=== PATIENT | female | born 1965 | race Caucasian/White ===

== ENCOUNTER 2019-02-18 05:04 | Emergency (ER) | payer OTHER ==
[2019-02-18] MEDS ORDERED: methylPREDNISolone Sodium Succinate 125 MG/2 ML SDV ONE (05:15)
[2019-02-18] MEDS ORDERED: Albuterol/Ipratropium 3.0-0.5 MG/3 ML Neb Soln ONE (05:15)
--- NOTE | 2019-02-18 05:15 | EDM.PDOC ---
ED HPI GENERAL MEDICAL PROBLEM - General Stated Complaint: SOB Time Seen by Provider: 02/18/19 05:10 Source of Information: Reports: Patient, RN Notes Reviewed History Limitations: Reports: Respiratory Distress - History of Present Illness INITIAL COMMENTS - FREE TEXT/NARRATIVE: 53-year-old female presents to emergency department today complaining of shortness of breath, she is a known history of asthma states she last used her inhaler 2 hours prior difficult to speak in more than 2 and 3 word sentences therefore review of systems and history of present illness is limited denies pain Pain Score (Numeric/FACES): 0 - Related Data Allergies Allergy/AdvReac Type Severity Reaction Status Date / Time Penicillins Allergy Severe Hives Verified 02/18/19 05:25 Home Meds: Home Meds Acetaminophen/HYDROcodone [HYDROcodone-Acetaminophen 5-500] 5 - 325 mg PO BID PRN 10/25/13 [History] Ibuprofen [Advil Liqui-Gels] 200 mg PO ASDIRECTED PRN 10/25/13 [History] Nitroglycerin 0.4 mg SL ASDIRECTED PRN 10/25/13 [History] traMADol [Ultram ER] 50 mg PO BID 10/25/13 [History] NIFEdipine [Procardia] 30 mg PO BEDTIME 12/30/13 [History] Methimazole [Tapazole] 10 mg PO DAILY 11/18/15 [History] Propranolol HCl 20 mg PO DAILY 11/18/15 [History] Rosuvastatin Calcium [Crestor] 10 mg PO DAILY 11/18/15 [History] predniSONE 20 mg PO DAILY #5 tab 02/18/19 [Rx] Past Medical History Cardiovascular History: Reports: High Cholesterol, [place] Respiratory History: Reports: Asthma Gastrointestinal History: Reports: Irritable Bowel Syndrome [employer] History: Reports: Endocrine/Metabolic History: Reports: Hypothyroidism - Past Surgical History Cardiovascular Surgical History: Reports: Carotid Stents GI Surgical History: Reports: Dominick Fundoplication Musculoskeletal Surgical History: Reports: Shoulder Surgery Social & Family History - Family History Cardiac: Reports: CAD, Hypertension, [place] - Tobacco Use Smoking Status *Q: Former Smoker ED ROS GENERAL - Review of Systems Review Of Systems: Unable To Obtain ED EXAM, GENERAL - Physical Exam Exam: See Below Exam Limited By: Respiratory Distress General Appearance: Alert, Moderate Distress Respiratory/Chest: Respiratory Distress, Decreased Breath Sounds, Wheezing Cardiovascular: No Murmur, Tachycardia Course - Vital Signs Last Recorded V/S: Last Vital Signs Temp 97.1 F 02/18/19 05:30 Pulse 95 02/18/19 05:30 Resp 24 H 02/18/19 05:30 BP 134/80 02/18/19 05:30 Pulse Ox 95 02/18/19 05:30 - Orders/Labs/Meds Orders: Active Orders 24 hr Category Date Time Status RT Aerosol Therapy [RC] ASDIRECTED Care 02/18/19 05:10 Active Meds: Medications Discontinued Medications Generic Name Dose Route Start Last Admin Trade Name Miguel Angel PRN Reason Stop Dose Admin Albuterol/Ipratropium 3 ml 02/18/19 05:10 02/18/19 05:19 Duoneb 3.0-0.5 Mg/3 Ml NEB 02/18/19 05:11 3 ml ONETIME ONE Administration Methylprednisolone Sodium Succinate 125 mg 02/18/19 05:10 02/18/19 05:19 Solu-Medrol IVPUSH 02/18/19 05:11 125 mg ONETIME ONE Administration - Re-Assessments/Exams Free Text/Narrative Re-Assessment/Exam: 02/18/19 05:28 Reexamination after the neb treatments reveals good air movement still has an expiratory wheeze Departure - Departure Time of Disposition: 06:04 Disposition: Home, Self-Care 01 Condition: Fair Clinical Impression: Asthma exacerbation Qualifiers: Asthma severity: moderate Asthma persistence: persistent Qualified Code(s): J45.41 - Moderate persistent asthma with (acute) exacerbation - Discharge Information Prescriptions: predniSONE 20 mg PO DAILY #5 tab Referrals: PCP,None [Primary Care Provider] - Additional Instructions: Start the steroids tomorrow please follow-up with your primary care provider in the next 3-5 days if no improvement, return to the emergency department with worsening of symptoms - My Orders Last 24 Hours: My Active Orders 02/18/19 05:10 RT Aerosol Therapy [RC] ASDIRECTED - Assessment/Plan Last 24 Hours: My Active Orders 02/18/19 05:10 RT Aerosol Therapy [RC] ASDIRECTED Plan: Assessment Asthma exacerbation Plan She had good improvement with the DuoNeb provided in the ED as well as 125 mg Solu-Medrol, discharged home prednisone 20 mg once day [facility]5 days if not better
[2019-02-18] MEDS: Albuterol/Ipratropium 3.0-0.5 MG/3 ML Neb Soln NEB ONE (05:19)
[2019-02-18] MEDS: methylPREDNISolone Sodium Succinate 125 MG/2 ML SDV IVPUSH ONE (05:19)
[2019-02-18 05:28] VITALS: BP 134/80
--- NOTE | 2019-02-18 05:59 | CRLCR ---
INDICATION: Shortness of breath TECHNIQUE: Chest 2 views. COMPARISON: None FINDINGS: Cardiovascular and mediastinum: Heart size and vasculature are normal in caliber and appearance. Mediastinum is within normal limits. Lungs and pleural spaces: Lungs are clear. No sign of infiltrate or mass. No sign of pleural effusion. No pneumothorax. Bones and soft tissues: No significant findings. There are surgical clips in the epigastric region. IMPRESSION: No sign of acute disease. Dictated by Kim Gonzalez MD @ Feb 18 2019 5:57AM Signed by Dr. Kim Gonzalez @ Feb 18 2019 5:58AM
== END 2019-02-18 06:17 | disposition home or self-care (01) ==
LOC: JP.ED 05:04
DX: J45.41 Moderate persistent asthma with (acute) exacerbation (principal); I25.2 Old myocardial infarction; Z87.891 Personal history of nicotine dependence; Z79.899 Other long term (current) drug therapy; Z88.0 Allergy status to penicillin
CPT/HCPCS: 71046; 94640; 96374; 99285; J2930; J7620-GY

== ENCOUNTER 2021-11-09 06:53 | Day surgery (SDC) | payer OTHER ==
[2021-11-09] MEDS ORDERED: Propofol 200 MG/20 ML SDV ONE (07:18)
[2021-11-09] MEDS ORDERED: fentaNYL 100 MCG/2 ML SDV ONE (07:18)
[2021-11-09] MEDS ORDERED: Midazolam 1 MG/ML 2 ML SDV ONE (07:18)
[2021-11-09] MEDS: Sodium Chloride 0.9% 1,000 ML IV SCH (07:47)
[2021-11-09 09:45] VITALS: BP 101/72; PULSE 76
== END 2021-11-09 09:45 | disposition home or self-care (01) ==
LOC: JP.SDS 06:53
PROVIDERS: ATTEND Surgery
DX: Z12.11 Encounter for screening for malignant neoplasm of colon (principal); K57.30 Diverticulosis of large intestine without perforation or abscess without bleeding; J44.9 Chronic obstructive pulmonary disease, unspecified; I25.10 Atherosclerotic heart disease of native coronary artery without angina pectoris; K21.9 Gastro-esophageal reflux disease without esophagitis; E03.9 Hypothyroidism, unspecified; Z87.891 Personal history of nicotine dependence; Z88.0 Allergy status to penicillin
CPT/HCPCS: J2250; J2704; J3010; J7030